=== PATIENT | female | born 1955 | race Caucasian/White ===

== ENCOUNTER 2020-12-30 14:42 | Inpatient (IN) ==
[2020-12-30] MEDS ORDERED: Melatonin 3 MG TABLET PO PRN (20:43)
[2020-12-30] MEDS ORDERED: Ondansetron ODT 4 MG TAB.RAPDIS SL PRN (20:43)
[2020-12-30] MEDS: Furosemide 40 MG TABLET PO SCH (22:09)
[2020-12-31] MEDS: *HR* Heparin 5,000 UNIT/ML VIAL SQ SCH ×2 (04:58→16:59)
[2020-12-31 06:19] LABS: Basophils # 0.1 K/mcL (0.0-0.2); Basophils % 0.9 %; Eosinophils # 0.4 K/mcL (0.0-0.6); Eosinophils % 3.9 %; Hematocrit 38.3 % (35.3-44.9); Hemoglobin 11.5 g/dL (11.5-15.4); Immature Granulocytes % 0.5 % (0-4); Lymphocytes # 1.4 K/mcL (0.6-4.6); Mean Corpuscular Hemoglobin 26.7 pg (28.0-33.3); Mean Corpuscular Volume 89.1 fL (83.0-100.0); Mean Platelet Volume 10.8 fL (9.4-12.4); Monocytes # 0.8 K/mcL (0.0-1.3); Monocytes % 8.2 %; Neutrophils # 6.6 K/mcL (1.6-8.9); Platelet Count 206 K/mcL (140-400); Red Cell Distribution Width 16.6 % (11.5-14.5); Segmented Neutrophils % 71.5 %; White Blood Count 9.2 K/mcL (4.3-11.1)
[2020-12-31 06:49] LABS: BUN/Creatinine Ratio 28 (6-26); Blood Urea Nitrogen 17 mg/dL (8-23); Calcium 8.9 mg/dL (8.6-10.3); Carbon Dioxide 35 mEq/L (23-29); Chloride 99 mEq/L (98-107); Glucose 88 mg/dL (70-105); Osmolality,Calculated 287 (280-300); Potassium 3.8 mEq/L (3.5-5.1); Sodium 138 mEq/L (136-145); eGFR For African Americans > 60 (> 60); eGFR For Non-African Americans > 60 (> 60)
[2020-12-31] MEDS: Aspirin Enteric Coated 81 MG Tablet PO SCH (08:13)
[2020-12-31] MEDS: Furosemide 40 MG TABLET PO SCH ×2 (08:13→16:59)
[2020-12-31] MEDS: Cholecalciferol (D-3) 1,000 UNIT (25MCG) TABLET PO SCH (08:13)
[2020-12-31] MEDS: atenoloL 50 MG TABLET PO SCH (08:13)
[2021-01-01] MEDS: *HR* Heparin 5,000 UNIT/ML VIAL SQ SCH ×2 (05:41→16:50)
[2021-01-01] MEDS: Furosemide 40 MG TABLET PO SCH ×2 (08:38→16:50)
[2021-01-01] MEDS: Aspirin Enteric Coated 81 MG Tablet PO SCH (08:38)
[2021-01-01] MEDS: Cholecalciferol (D-3) 1,000 UNIT (25MCG) TABLET PO SCH (08:39)
[2021-01-01] MEDS: atenoloL 50 MG TABLET PO SCH (08:39)
[2021-01-02] MEDS: *HR* Heparin 5,000 UNIT/ML VIAL SQ SCH ×2 (06:43→17:01)
[2021-01-02] MEDS: atenoloL 50 MG TABLET PO SCH (08:51)
[2021-01-02] MEDS: Cholecalciferol (D-3) 1,000 UNIT (25MCG) TABLET PO SCH (08:51)
[2021-01-02] MEDS: Aspirin Enteric Coated 81 MG Tablet PO SCH (08:51)
[2021-01-02] MEDS: Furosemide 40 MG TABLET PO SCH ×2 (08:51→17:00)
[2021-01-03 05:33] LABS: Hematocrit 41.8 % (35.3-44.9); Hemoglobin 12.4 g/dL (11.5-15.4); Mean Corpuscular HGB Conc 29.7 g/dL (31.6-35.5); Mean Corpuscular Hemoglobin 26.6 pg (28.0-33.3); Mean Corpuscular Volume 89.5 fL (83.0-100.0); Mean Platelet Volume 10.2 fL (9.4-12.4); Platelet Count 212 K/mcL (140-400); Red Blood Count 4.67 M/mcL (3.82-4.97); Red Cell Distribution Width 16.7 % (11.5-14.5); White Blood Count 9.2 K/mcL (4.3-11.1)
[2021-01-03] MEDS: *HR* Heparin 5,000 UNIT/ML VIAL SQ SCH ×2 (05:33→16:49)
[2021-01-03 05:55] LABS: Alanine Aminotransferase 10 Units/L (7-52); Albumin 3.3 g/dL (3.5-5.7); Albumin/Globulin Ratio 0.9 (1.1-2.2); Alkaline Phosphatase 76 Units/L (34-104); Aspartate Amino Transferase 15 Units/L (13-39); BUN/Creatinine Ratio 24 (6-26); Bilirubin,Total 0.9 mg/dL (0.3-1.0); Blood Urea Nitrogen 18 mg/dL (8-23); Calcium 9.2 mg/dL (8.6-10.3); Carbon Dioxide 43 mEq/L (23-29); Chloride 95 mEq/L (98-107); Globulin 3.8 g/dL (2.4-3.5); Glucose 92 mg/dL (70-105); Magnesium 1.9 mg/dL (1.6-2.6); Osmolality,Calculated 294 (280-300); Potassium 4.6 mEq/L (3.5-5.1); Sodium 141 mEq/L (136-145); Total Protein 7.1 g/dL (6.4-8.9); eGFR For African Americans > 60 (> 60); eGFR For Non-African Americans > 60 (> 60)
[2021-01-03] MEDS: atenoloL 50 MG TABLET PO SCH (08:31)
[2021-01-03] MEDS: Furosemide 40 MG TABLET PO SCH ×2 (08:31→16:49)
[2021-01-03] MEDS: Cholecalciferol (D-3) 1,000 UNIT (25MCG) TABLET PO SCH (08:31)
[2021-01-03] MEDS: Aspirin Enteric Coated 81 MG Tablet PO SCH (08:31)
[2021-01-04] MEDS: *HR* Heparin 5,000 UNIT/ML VIAL SQ SCH ×2 (06:41→16:50)
[2021-01-04] MEDS: atenoloL 50 MG TABLET PO SCH (08:27)
[2021-01-04] MEDS: Cholecalciferol (D-3) 1,000 UNIT (25MCG) TABLET PO SCH (08:27)
[2021-01-04] MEDS: Aspirin Enteric Coated 81 MG Tablet PO SCH (08:27)
[2021-01-04] MEDS: Furosemide 40 MG TABLET PO SCH ×2 (08:27→16:50)
[2021-01-04] MEDS: Acetaminophen 325 MG TABLET PO PRN (10:57)
[2021-01-05] MEDS: *HR* Heparin 5,000 UNIT/ML VIAL SQ SCH ×2 (04:46→16:30)
[2021-01-05] MEDS: Aspirin Enteric Coated 81 MG Tablet PO SCH (08:18)
[2021-01-05] MEDS: Cholecalciferol (D-3) 1,000 UNIT (25MCG) TABLET PO SCH (08:18)
[2021-01-05] MEDS: atenoloL 50 MG TABLET PO SCH (08:19)
[2021-01-05] MEDS: Furosemide 40 MG TABLET PO SCH ×2 (08:19→16:30)
[2021-01-05] MEDS: Acetaminophen 325 MG TABLET PO PRN ×2 (09:07→14:37)
[2021-01-06] MEDS: *HR* Heparin 5,000 UNIT/ML VIAL SQ SCH ×2 (05:57→16:32)
[2021-01-06] MEDS: Acetaminophen 325 MG TABLET PO PRN ×2 (08:03→23:42)
[2021-01-06] MEDS: Furosemide 40 MG TABLET PO SCH (08:03)
[2021-01-06] MEDS: Aspirin Enteric Coated 81 MG Tablet PO SCH (08:03)
[2021-01-06] MEDS: Cholecalciferol (D-3) 1,000 UNIT (25MCG) TABLET PO SCH (08:03)
[2021-01-06] MEDS: atenoloL 50 MG TABLET PO SCH (08:05)
[2021-01-06] MEDS: acetaZOLAMIDE 250 MG TABLET PO SCH ×2 (11:54→20:47)
[2021-01-07] MEDS: *HR* Heparin 5,000 UNIT/ML VIAL SQ SCH ×2 (05:09→18:13)
[2021-01-07 05:13] LABS: Basophils # 0.1 K/mcL (0.0-0.2); Basophils % 0.7 %; Eosinophils # 0.6 K/mcL (0.0-0.6); Eosinophils % 7.1 %; Hematocrit 41.7 % (35.3-44.9); Hemoglobin 12.4 g/dL (11.5-15.4); Immature Granulocytes % 0.2 % (0-4); Lymphocytes # 1.5 K/mcL (0.6-4.6); Mean Corpuscular HGB Conc 29.7 g/dL (31.6-35.5); Mean Corpuscular Hemoglobin 26.3 pg (28.0-33.3); Mean Corpuscular Volume 88.3 fL (83.0-100.0); Mean Platelet Volume 9.9 fL (9.4-12.4); Monocytes # 0.6 K/mcL (0.0-1.3); Monocytes % 7.7 %; Neutrophils # 5.4 K/mcL (1.6-8.9); Platelet Count 241 K/mcL (140-400); Red Blood Count 4.72 M/mcL (3.82-4.97); Red Cell Distribution Width 16.8 % (11.5-14.5); Segmented Neutrophils % 66.3 %; White Blood Count 8.2 K/mcL (4.3-11.1)
[2021-01-07 05:34] LABS: BUN/Creatinine Ratio 25 (6-26); Blood Urea Nitrogen 18 mg/dL (8-23); Calcium 9.4 mg/dL (8.6-10.3); Carbon Dioxide 39 mEq/L (23-29); Chloride 98 mEq/L (98-107); Glucose 110 mg/dL (70-105); Osmolality,Calculated 291 (280-300); Potassium 4.1 mEq/L (3.5-5.1); Sodium 139 mEq/L (136-145); eGFR For African Americans > 60 (> 60); eGFR For Non-African Americans > 60 (> 60)
[2021-01-07] MEDS: Aspirin Enteric Coated 81 MG Tablet PO SCH (07:45)
[2021-01-07] MEDS: acetaZOLAMIDE 250 MG TABLET PO SCH ×2 (07:45→20:02)
[2021-01-07] MEDS: Cholecalciferol (D-3) 1,000 UNIT (25MCG) TABLET PO SCH (07:46)
[2021-01-07] MEDS: atenoloL 50 MG TABLET PO SCH (07:46)
[2021-01-07] MEDS ORDERED: Furosemide 40 MG TABLET PO SCH (09:00)
[2021-01-07] MEDS: Acetaminophen 325 MG TABLET PO PRN ×2 (12:33→20:02)
[2021-01-07 19:52] VITALS: BP 142/70
== END 2021-01-07 22:00 | disposition home or self-care (01) | DRG 860 ==
LOC: INPGRE 19:41
PROVIDERS: ADMIT Family Medicine; ATTEND Family Medicine